=== PATIENT | female | born 1995 | race Caucasian/White ===

== ENCOUNTER 2021-11-01 09:46 | Inpatient (IN) ==
[2021-11-01] MEDS ORDERED: Ringers Solution, Lactated 1,000 ML IVC ONE (09:48)
[2021-11-01] MEDS ORDERED: Metoclopramide 10 MG/2 ML VIAL IVP ONE (09:48)
[2021-11-01] MEDS ORDERED: Oxytocin 20 units/ LR 1000 mL 20 UNIT/1,000 ML BAG IVC ONE (09:48)
[2021-11-01] MEDS ORDERED: Famotidine 20 MG/2 ML VIAL IVP ONE (09:48)
[2021-11-01] MEDS ORDERED: CeFAZolin 2,000 MG/120 ML BAG IVPB ONE (09:48)
[2021-11-01] MEDS ORDERED: Oxytocin 20 units/ LR 1000 mL 20 UNIT/1,000 ML BAG IVC SCH ×3 (10:00→17:55)
[2021-11-01] MEDS ORDERED: Ringers Solution, Lactated 1,000 ML IVC SCH ×2 (10:00→17:55)
[2021-11-01 10:42] LABS: Basophils % 0.2 %; Eosinophils % 0.2 %; Hematocrit 30.6 % (35.3-44.9); Hemoglobin 9.8 g/dL (11.5-15.4); Immature Granulocytes % 0.9 % (0-4); Lymphocytes # 1.1 K/mcL (0.6-4.6); Lymphocytes % 11.6 %; Mean Corpuscular Hemoglobin 25.1 pg (28.0-33.3); Mean Corpuscular Volume 78.5 fL (83.0-100.0); Mean Platelet Volume 11.1 fL (9.4-12.4); Monocytes # 0.5 K/mcL (0.0-1.3); Monocytes % 5.4 %; Neutrophils # 7.7 K/mcL (1.6-8.9); Platelet Count 273 K/mcL (140-400); Red Cell Distribution Width 14.5 % (11.5-14.5); Segmented Neutrophils % 81.7 %; White Blood Count 9.4 K/mcL (4.3-11.1)
[2021-11-01 11:14] LABS: Influenza A PCR Negative (Negative); Influenza B PCR Negative (Negative); Resp. Syncytial Virus PCR Negative (Negative); SARS-CoV-2 by PCR (In House) Negative (Negative)
[2021-11-01] MEDS ORDERED: *HR* FentaNYL (PF) 100 MCG/2 ML VIAL ONE (11:57)
[2021-11-01] MEDS ORDERED: *HR* Morphine Sulfate/PF 10 MG/10 ML AMPUL ONE (11:57)
[2021-11-01 12:51] LABS: Amphetamine Screen,Urine Negative ng/mL (Cutoff=1000); Barbiturate Screen,Urine Negative ng/mL (Cutoff=200); Benzodiazepines Screen,Urine Negative ng/mL (Cutoff=200); Cannabinoid Screen,Urine Negative ng/mL (Cutoff = 50); Cocaine Screen,Urine Negative ng/mL (Cutoff= 300); Opiate Screen,Urine Negative ng/mL (Cutoff=300); Phencyclidine Screen,Urine Negative ng/mL (Cutoff=25)
[2021-11-01] MEDS ORDERED: Acetaminophen IV 1,000 MG/100 ML BAG IVPB ONE (14:33)
[2021-11-01] MEDS ORDERED: Ondansetron 4 MG/2 ML VIAL ONE (14:33)
[2021-11-01] MEDS ORDERED: Ketorolac 30 MG/ML VIAL ONE (14:33)
[2021-11-01] MEDS ORDERED: *HR* HYDROmorphone (PF) 1 MG/ML SYRINGE IVP ONE (16:18)
[2021-11-01] MEDS ORDERED: Metoclopramide 10 MG/2 ML VIAL IVP PRN (17:55)
[2021-11-01] MEDS ORDERED: Rho Immune Globulin 1,500 UNIT SYRINGE IM ONE (17:55)
[2021-11-01] MEDS ORDERED: Ondansetron 4 MG/2 ML VIAL IVP PRN (17:55)
[2021-11-01] MEDS: Ibuprofen 600 MG TABLET PO SCH (21:48)
[2021-11-01] MEDS: Acetaminophen 325 MG TABLET PO SCH (21:49)
[2021-11-01] MEDS: Simethicone 80 MG TAB.CHEW PO PRN (21:49)
[2021-11-02] MEDS: Ibuprofen 600 MG TABLET PO SCH ×2 (05:06→17:43)
[2021-11-02] MEDS: Acetaminophen 325 MG TABLET PO SCH ×2 (05:06→17:43)
[2021-11-02 05:54] LABS: Basophils % 0.2 %; Eosinophils % 0.1 %; Hematocrit 25.9 % (35.3-44.9); Hemoglobin 8.3 g/dL (11.5-15.4); Immature Granulocytes % 0.5 % (0-4); Lymphocytes # 1.2 K/mcL (0.6-4.6); Lymphocytes % 9.2 %; Mean Corpuscular Hemoglobin 25.3 pg (28.0-33.3); Mean Platelet Volume 11.4 fL (9.4-12.4); Monocytes # 0.9 K/mcL (0.0-1.3); Monocytes % 6.9 %; Neutrophils # 10.8 K/mcL (1.6-8.9); Platelet Count 260 K/mcL (140-400); Red Blood Count 3.28 M/mcL (3.82-4.97); Red Cell Distribution Width 14.4 % (11.5-14.5); Segmented Neutrophils % 83.1 %
[2021-11-02] MEDS: Prenatal Vit/FA 1 EACH TABLET PO SCH (08:12)
[2021-11-02] MEDS: Simethicone 80 MG TAB.CHEW PO PRN (20:24)
[2021-11-02] MEDS: *HR* OxyCODONE Immed Rel 5 MG TABLET PO PRN (22:27)
[2021-11-03] MEDS ORDERED: Lanolin 7 G OINT...G. TP PRN (01:26)
[2021-11-03] MEDS: Ibuprofen 600 MG TABLET PO SCH ×2 (01:34→08:25)
[2021-11-03] MEDS: Acetaminophen 325 MG TABLET PO SCH ×2 (01:35→08:25)
[2021-11-03 07:28] VITALS: BP 107/71; PULSE 96; TEMP 98; O2SAT 100
[2021-11-03] MEDS: Prenatal Vit/FA 1 EACH TABLET PO SCH (08:25)
[2021-11-03] MEDS: Simethicone 80 MG TAB.CHEW PO PRN (08:25)
[2021-11-03] MEDS: *HR* OxyCODONE Immed Rel 5 MG TABLET PO PRN (11:17)
== END 2021-11-03 12:20 | disposition home or self-care (01) | DRG 539 ==
LOC: 1NENULAB 09:46 → 1NENUOBS 18:12
PROVIDERS: ADMIT Student in an Organized Health Care Education/Training Program; ATTEND Student in an Organized Health Care Education/Training Program